=== PATIENT | female | born 1980 | race Caucasian/White ===

== ENCOUNTER 2021-10-19 07:46 | Emergency (ER) | payer OTHER ==
[2021-10-19] MEDS ORDERED: DEXAMETHASONE SOD PHOSPHATE 10 MG/1 ML VIAL ONE (08:01)
[2021-10-19] MEDS ORDERED: DEXAMETHASONE LIQUID 0.5 MG/5 ML PO ONE (08:03)
[2021-10-19 08:07] VITALS: BP 102/71; PULSE 88; TEMP 98.4; BMI 23.0
== END 2021-10-19 08:07 | disposition home or self-care (01) ==
LOC: JER 07:46
DX: J02.9 Acute pharyngitis, unspecified (principal)
CPT/HCPCS: 87070; 87804; 87807; 99283-25; C9803; U0003; U0005